=== PATIENT | male | born 1955 | race Caucasian/White ===

== ENCOUNTER 2025-01-05 09:55 | Outpatient (CLI) | payer MEDICARE, SELFPAY ==
--- NOTE | ~2025-01-05 | CT_ITS ---
CT of the Abdomen and Pelvis: Indication: Hematuria Technique: 2.5 mm axial scans were obtained through the abdomen and pelvis prior to and following in travenous administration of 130 cc of Omnipaque 350. Dose reduction technique was used on this scan b y utilizing automated exposure control and iterative reconstruction technique. The dose-length produc t (DLP) was 1222.55 mGy-cm. Findings: Scans through the lung bases are unremarkable. The liver, spleen, pancreas, gallbladder, adrenals and kidneys are within normal limits. There are at herosclerotic calcifications of the aorta. No lymphadenopathy. No bowel obstruction or bowel wall thickening. There is no evidence to suggest acute appendicitis. Sm all fat-containing umbilical hernia. Images through the pelvis were performed. Urinary bladder unremarkable. Prostate gland enlarged. Impression: No etiology for hematuria. Enlarged prostate gland. Reviewed, dictated and finalized at [facility]. Impression: No etiology for hematuria. Enlarged prostate gland.
[2025-01-05 10:26] LABS: Estimated Glomerular Filt Rate 51
--- OUTSIDE RECORDS SUMMARY | 2025-01-05 11:00 | XMS_ITS | Data Portability ---
Author Organization [place] [facility], Main Office Address [address] [place] [address] Assessment Encounter Date Assessment Date Assessment LastModified by Organization Details LastModified Time 01/22/2023 01/22/2023 67-year-old patient presents today with left knee pain that started in November. He states he kneeled down, felt his knee roll, and felt immediate pain. He then experienced swelling over the next few days. Now every time he puts pressure on the knee by kneeling it swells. he has not had any injury to this knee in the past. He has not tried any treatments so far. 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 Review of systems per patient questionnaire Imaging: Review of x-rays show no acute bony abnormality, no fracture. Preserved joint space throughout. Physical exam: Nonantalgic gait. Slight tenderness palpation over the distal pole of the patella. Range of motion 0-150 without crepitus. Negative Gennaro's. Stable Mariah's with firm endpoint. Stable posterior drawer, varus and valgus stress. Normal patellar mobility. Edema located over patella. He is most likely experiencing prepatellar bursitis. The most important thing for him to do would be to wear knee pads when he is kneeling so he is not kneeling directly on to the ground. He can also use a compressive wrap around the knee to prevent future swelling. We will provide him with an Jonathan wrap. He states he also has a knee sleeve that he can wear as well. He can also take anti-inflammator y medications, ice, and elevate. We will be seeing him later this week for his shoulders and will recheck his progress with his knee at that time. [email or web address] Not available 01/22/2023 20:09:12 01/24/2023 01/24/2023 67-year-old male presenting for evaluation of a new problem. He is here for his bilateral shoulders. He has pain that has been going on for a long time, getting progressively worse. He hurts with overhead motions and repetitive motions as well as reaching behind his back. He is right-hand dominant. He denies any acute injury. He has not had any treatments. Physical exam: He has tenderness palpation over the AC joint. Range of motion 140/30/lower lumbar. He has some discomfort with reaching behind his back. He has 5/5 rotator cuff strength, although discomfort with resisted external rotation elevation. Positive Neer, Charles bilaterally. Negative Speed, Yergason's. He does have some pain in his neck with range of motion testing. No radiating pain down his arms with Spurling's testing. Previous x-rays of his cervical spine and left shoulder were reviewed, demonstrating some degenerative changes in cervical spine and also AC joint arthrosis. Bilateral shoulder x-rays were obtained and reviewed today, demonstrating no acute bony abnormality, bilateral AC joint arthrosis. We will begin with a course of anti-inflammator ies and physical therapy, which he is already on for his previous knee issues. We will see him back in 4-6 weeks and we can follow up for all of his problems at his next visit. [email or web address] Not available 01/24/2023 09:15:04 Plan of Treatment Reminders Order Date Submit Date Provider Last Modified By Organization Details Last Modified Time Details Appointments None recorded. Lab None recorded. Referral physical therapist referral - Please schedule pt for mariam shoulders. thanks 2022 023 [email or web address] [facility], [address], [place], [address], 3 01:26:26 Procedures None recorded. Surgeries None recorded. Imaging None recorded. Medication Orders Mobic 15 mg tablet 2022 023 [email or web address] [facility], [facility] [address], [place] [address], [place], [place], [phone], 01:26:26 Patient TargetsNo targets recorded. Patient InstructionsNo instructions recorded. Reason for Referral Physical Therapist Referral for Bilateral shoulder joint pain Mariam shoulder Please schedule pt for mariam shoulders. thanks Referring Physician: Armando Lyman, Orthopedic Surgery, Encounter Date: 01/24/2023 Problems Name Problem SNOMED Code Status Onset Date Resolution Date Notes Provider Name and Address Organization Details Recorded Time Pain of left knee joint 23579585902377 7 Active 2022 CRYSTAL Grant, [facility] 3 09:17:39 Bilateral shoulder joint pain 76345982409805 104 Active 2022 CRYSTAL Grant, [facility] 3 08:58:35 Problem Notes None recorded. Procedures Surgical History Date Name Laterality Status Provider Name and Address Organization Details Recorded Time 10/06/2017 Stints completed Luz Elena العلي CNA [facility] 01/22/2023 09:27:48 Imaging Results None recorded. Procedure Notes None recorded. Medical Equipment None Reported. Medications Name Sig Start Date Stop Date Status Note LastModified by Organization Details LastModified Time carvedilol 6.25 mg tablet Take 1 tablet twice a day by oral route. active Not Available Not Available No t Available meloxicam 15 mg tablet TAKE 1 TABLET BY MOUTH DAILY 2022 active Not Available Not Available Not Avai lable lisinopril 10 mg tablet Take 1 tablet every day by oral route. active Not Available Not Available No t Available nitroglyceri n 0.[address] by sublingual route. active Not Available Not Available No t Available Vitamin D2 1,250 mcg (50,000 unit) capsule Take by oral route. active Not Available Not Available Not Available rosuvastatin 20 mg tablet Take 1 tablet every day by oral route. active Not Available Not Available No t Available multivitamin active Not Available Not Available Not Available Levemir FlexPen 100 unit/mL (3 mL) solution subcutaneous insulin pen Inject by subcutaneou s route. active Not Available Not Available No t Available metformin ER 500 mg 24 hr tablet,exten ded release (gastric retention) Take 1 tablet every day by oral route. active Not Available Not Available No t Available Januvia 100 mg tablet Take 1 tablet every day by oral route. active Not Available Not Available No t Available OneTouch Verio test strips TEST THREE TIMES DAILY active Not Available Not Available Not Available aspirin 81 mg capsule Take 1 capsule every day by oral route. active Not Available Not Available No t Available Vitals Date Recorded Body height Body mass index (BMI) Body weight Provider Name and Address Organization Details Last Updated DateTime 01/22/2023 190.5 cm 25 kg/m2 41258.47 g Luz Elena العلي CNA [facility] [employer] [facility] 01/22/2023 09:15:01 Date Recorded Body height Body mass index (BMI) Body weight Provider Name and Address Organization Details Last Updated DateTime 01/24/2023 190.5 cm 25 kg/m2 86656.47 g Luz Elena العلي CNA [facility] 01/24/2023 08:58:02 Social History Question Answer Notes LastModified by Organizat ion Details LastModified Time Tobacco Smoking Status Never Smoker Luz Elena العلي CNA [facility] [employer] [facility] 01/22/2023 09:27:26 What Is Your Level Of Alcohol Consumption? None [email or web address] Information not available 01/22/2023 Sex: Unknown Functional Status None recorded. Mental Status None recorded. Family History Relationship Description Onset Age of this Age Resolved Age Notes LastModified by Organization Details LastModified Time Mother Heart disease [email or web address] Not available 2022 09:26:21 Mother Family history of stroke [email or web address] Not available 2022 09:26:32 Mother Diabetes mellitus [email or web address] Not available 2022 09:27:10 Father Family history of malignant neoplasm [email or web address] Not available 2022 09:26:44 Father Hypertensive disorder [email or web address] Not available 2022 09:26:59 Medical History Condition Response ARTHRITIS Y DIABETES, TYPE Y USE OF BLOOD THINNERS Y Past Encounters Encounter ID Performer Location Encounter Start Date Encounter Closed Date Diagnosis/Indication Diagnosis SNOMED-CT Code Diagnosis ICD10 Code Diagnosis Note [id number] Sun [place] NP [facility] [place] [address] [place] [address] 01/22/2023 09:00:58 01/22/2023 09:42:39 Pain of left knee joint 8325807141 88213 M25.562 [id number] Armando Lyman MD [facility] [place] [address] [place] [address] 01/24/2023 08:48:00 01/24/2023 10:04:54 Bilateral shoulder joint pain 1101683110 8652660 M25.511 M25.512 Health Concerns Section Related Observation LastModified by Organization Detai ls LastModified Time None Recorded Concern Status LastModified by Organization Details LastModified Time None Recorded Advance Directives Directive None Recorded Payers Encounter Date Sequence Insurance Name Policy Number Policy Hoffman Covered Member ID Hoffman Member ID Guarantor Name 01/22/2023 1 [place] Elmer Rose [id number] Elmer Rose 01/22/2023 1 [facility] (MEDICARE REPLACEMENT/A DVANTAGE - PPO) [id number] Emler Rose [id number] Elmer Rose 01/24/2023 1 [place] Elmer Rose [id number] Elmer Rose 01/24/2023 1 [facility] (MEDICARE REPLACEMENT/A DVANTAGE - PPO) [id number] Elmer Rose [id number] Elmer Rose
--- OUTSIDE RECORDS SUMMARY | 2025-01-05 11:00 | XMS_ITS | Continuity of Care Document ---
Author Organization [facility] Address [address] [place] [address] [address] [place] [address] Phone Care Team Providers Care Director Marketing Name Role Phone Mccray OD, [employer] Unavailable Unavailable Advance Directives Directive Yes / No Effective Date File Name No Information Encounters Encounter Description Practice Location Reason(s) For Visit Diagnoses Date Provider Providers Copied on Encounter [facility], [id number] [place] [address] [address], [place], [place], [id number], [place] tel:[phone] No Information Mar-0 4-200 6 Mccray OD [employer]. [address] , [address], [place], [address], [place]. tel:[phone] Family History Family Member Type Diagnosis Age At Onset No Information Payers Payer name Insurance type Covered alliance party ID Authoriza tion(s) [employer] SOI CI [id number] Social History Type Description Quantity Date Captured Comments Sex Male Smoking Status No Information Chief Complaint And Reason For Visit No Information Reason For Referral Reason For Referral No Information History Of Present Illness Encounter Date Complaint History Of Prese nt Illness No Information Functional Status Date Functional Assessmen t No Information Instructions Date Instruction Additional Infor mation No Information Assessments Type Assessment Date No Information Patient Care Teams Name Effective Dates (start - stop) Status Members No Information
--- OUTSIDE RECORDS SUMMARY | 2025-01-05 11:00 | XMS_ITS | Clinical Summary ---
Author Organization [facility] Address [address] [place] [address] Care Team Providers Care Milk Handler Name Role Phone Ethan Santana MD Primary Care Provider [phone] Source Comments [facility],non-owned Affiliates and Associated Physician Practices is amultiple site organization consisting of ambulatory clinics and hospital sitesin [place], [place], [place] and [place]. This disclosure is being madepursuant to the Care Everywhere program and may not contain all information available regarding this patient. 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 Gender Identity Male 12/27/2021 11:19 AM CDT Sexual Orientation Not on file Plan of Treatment Health Maintenance Due Date Last Done Comments COLOGUARD (AGES 45-75) - COL ON CA SCREENING 1957 COLON MONITORING 1957 COLONOSCOPY - COLON CA SCREENING 1957 CT COLONOGRAPHY - COLON CA SCREENING 1957 Colorectal Cancer Screening 1957 FIT - COLON CA SCREENING 1957 FLEX SIG - COLON CA SCREENING 1957 LIPID TESTING 1957 HEPATITIS C SCREENING 11/01/1975 DTAP/TDAP/TD VACCINES (1 - Tdap) 1976 PNEUMOCOCCAL VACCINE 50+ (1 of 1 - PCV) 2007 ZOSTER VACCINE (1 of 2) 2007 COVID-19 VACCINE (1 - 2023-2 5 season) 2024 DEPRESSION SCREENING 09/08/2024 INFLUENZA VACCINE (Season Ended) 2025 Respiratory Syncytial Virus (RSV) Vaccine Pt: or over 60 yrs (1 - 1-dose 75+ series) 2032 HEPATITIS B VACCINE Aged Out No longe r eligible based on patient's age to complete this topic HIB VACCINE Aged Out No longer eligi ble based on patient's age to complete this topic HPV VACCINE Aged Out No longer eligi ble based on patient's age to complete this topic MENINGOCOCCAL (Group B) VACC INE SHARED DECISION-MAKING Aged Out No longer eligibl e based on patient's age to complete this topic MENINGOCOCCAL GROUPS A/C/Y/W VACCINE Aged Out No longer eligible b ased on patient's age to complete this topic Insurance AET [facility] Care Teams Milk Handler Relationship Specialty Start Date End Date Ethan Santana MD [address] [place] [address] PCP - General Family Medicine 09/25/19
== END 2025-01-05 09:56 | disposition home or self-care (01) ==
PROVIDERS: PCP Family Medicine; Visit Provider Nurse Practitioner
DX: R31.0 Gross hematuria (principal); N40.0 Benign prostatic hyperplasia without lower urinary tract symptoms
CPT/HCPCS: 74178; Q9967